=== PATIENT | female | born 1970 | race African-American/Black ===

== ENCOUNTER 2025-10-05 07:40 | Inpatient (IN) | payer OTHER ==
[~2025-10-05] VITALS: Ht 162.6 cm; Wt 62.6 kg
[2025-10-05 07:47] VITALS: O2SAT 100
[2025-10-05] MEDS: ADENOSINE 3 MG/ML 2ML VIAL IV ONE ×5 (07:55→08:04)
[2025-10-05 07:59] LABS: MEAN PLATELET VOLUME 7.0 fl (7.4-10.4); PLATELET 143 x1000/uL (130-400); RED BLOOD CELL COUNT 1.88 mill/uL (4.2-5.4); RED CELL DISTRIBUTION WIDTH 19.2 % (11.6-14.6)
[2025-10-05] MEDS: DILTIAZEM HCL 5MG/ML 5ML VIAL IV ONE (08:01)
[2025-10-05 08:05] LABS: HEMATOCRIT. 16.9 % (36.0-48.0); HEMOGLOBIN. 5.5 g/dL (12.0-16.0)
[2025-10-05 08:06] LABS: CREATININE 1.4 mg/dL (0.6-1.0)
[2025-10-05 08:07] LABS: UREA NITROGEN BLOOD 17.0 mg/dL (9-23)
[2025-10-05 08:26] LABS: BAND% 18.0 % (1.0-6.0); LYMPHOCYTES % MANUAL 14.0 % (20.0-60.0); MONOCYTES % MANUAL 10.0 % (2.0-8.0); NEUTROPHILS % MANUAL 58.0 % (45.0-75.0); PLATELET ESTIMATE NORMAL
[2025-10-05] MEDS: SODIUM CHLORIDE 0.9% 1,000 ML IV ONE (08:42)
[2025-10-05] MEDS ORDERED: VANCOMYCIN 1G PREMIX 200 ML IV ONE (13:45)
[2025-10-05] MEDS: PIPERACILLIN/TAZO 3.375G/50ML 50 ML IV ONE (13:57)
[2025-10-05] MEDS: SODIUM CHLORIDE 0.9% (SEPSIS BOLUS) IV ONE (13:57)
[2025-10-05] MEDS: METOPROLOL TARTRATE 50MG TABLET PO SCH (14:03)
[2025-10-05] MEDS: ACETAMINOPHEN 1000MG/100ML 100 ML IV ONE (14:06)
[2025-10-05 15:37] LABS: PROTEIN TOTAL 7.2 g/dL (6.0-8.3)
[2025-10-05 15:39] LABS: ASPARTATE AMINOTRANSFERASE 10 IU/L (<34); BILIRUBIN DIRECT 0.1 mg/dL (<=3.0); BILIRUBIN TOTAL 0.3 mg/dL (0.1-1.0)
[2025-10-05 15:52] VITALS: BP 137/82; PULSE 113; RESP 20; TEMP 37.252
[2025-10-05 16:40] VITALS: BP 137/82; PULSE 70; RESP 19; TEMP 37.3; O2SAT 100
[2025-10-05] MEDS ORDERED: ONDANSETRON HCL 4MG/2ML INJ IV PRN (16:45)
[2025-10-05] MEDS: DILTIAZEM HCL 30MG TABLET PO SCH (18:12)
[2025-10-05 19:29] LABS: CLARITY URINE CLOUDY (CLEAR); COLOR URINE YELLOW (YELLOW); GLUCOSE URINE NEGATIVE (NEGATIVE); KETONES URINE TRACE (NEGATIVE); LEUKOCYTE ESTERASE URINE 2+ (NEGATIVE); NITRITE URINE NEGATIVE (NEGATIVE); OCCULT BLOOD URINE 2+ (NEGATIVE); PH URINE 6.0 (4.5-8.0); PROTEIN URINE 2+ (NEGATIVE); SPECIFIC GRAVITY URINE 1.015 (1.005-1.030); UROBILINOGEN URINE 0.2 E.U./dL (0.2-1.0)
[2025-10-05 19:52] LABS: BACTERIA URINE 2+; SQUAMOUS EPITHELIAL CELL URINE 1+ /lpf (RARE/1+)
[2025-10-05 20:00] VITALS: BP 124/77; PULSE 109; RESP 18; TEMP 37.5; O2SAT 99
[2025-10-06] VITALS (9 sets, daily range): BP systolic 112–134; BP diastolic 59–74; PULSE 84–99; RESP 14–19; TEMP 36.28068–37.4; O2SAT 98–100
[2025-10-06] MEDS: KCL 20MEQ/100ML PREMIX 100 ML IV SCH (00:06)
[2025-10-06] MEDS ORDERED: DEXTROSE 50% WATER 50ML SYRINGE IV PRN (00:45)
[2025-10-06] MEDS: LOPERAMIDE 2MG/15ML UDC PO PRN (01:00)
[2025-10-06] MEDS: BLOOD SUGAR DIAGNOSTIC STRIP TEST SCH (07:02)
[2025-10-06] MEDS: INSULIN LISPRO 100 UNITS/ML SUBCUT SCH (07:03)
[2025-10-06 07:13] LABS: HEMOGLOBIN. 7.1 g/dL (12.0-16.0); MEAN PLATELET VOLUME 6.6 fl (7.4-10.4); PLATELET 94 x1000/uL (130-400); RED BLOOD CELL COUNT 2.47 mill/uL (4.2-5.4); RED CELL DISTRIBUTION WIDTH 19.4 % (11.6-14.6)
[2025-10-06 07:38] LABS: CREATININE 1.5 mg/dL (0.6-1.0); UREA NITROGEN BLOOD 20.0 mg/dL (9-23)
[2025-10-06 08:14] LABS: HEMATOCRIT. 21.0 % (36.0-48.0)
[2025-10-06] MEDS: LOPERAMIDE HCL 2MG CAPSULE PO PRN (10:28)
[2025-10-06] MEDS ORDERED: CEFTRIAXONE 1GM/50ML 50 ML IV SCH (16:00)
[2025-10-06] MEDS: PIPERACILLIN/TAZO 3.375G/50ML 50 ML IV SCH (18:24)
[2025-10-06 19:40] LABS: BAND% 36.0 % (1.0-6.0); LYMPHOCYTES % MANUAL 14.0 % (20.0-60.0); METAMYELOCYTES % 7.0 % (0-0); MONOCYTES % MANUAL 4.0 % (2.0-8.0); NEUTROPHILS % MANUAL 39.0 % (45.0-75.0); NUCLEATED RED BLOOD CELLS 1 /100 WBC; PLATELET ESTIMATE DECREASED
[2025-10-06 22:46] LABS: FOLIC ACID (FOLATE) SERUM 6.47 ng/mL (>5.38); VITAMIN B12 SERUM 1652 pg/mL (211-911)
[2025-10-07] VITALS: BP 133/75; PULSE 84; RESP 18; TEMP 36.4; O2SAT 99
[2025-10-07 04:00] VITALS: BP 134/76; PULSE 85; RESP 18; TEMP 36.7; O2SAT 99
[2025-10-07 07:51] LABS: HEMATOCRIT. 27.6 % (36.0-48.0); HEMOGLOBIN. 9.2 g/dL (12.0-16.0); MEAN PLATELET VOLUME 6.8 fl (7.4-10.4); PLATELET 100 x1000/uL (130-400); RED BLOOD CELL COUNT 3.18 mill/uL (4.2-5.4); RED CELL DISTRIBUTION WIDTH 18.5 % (11.6-14.6)
[2025-10-07 07:56] LABS: CREATININE 1.3 mg/dL (0.6-1.0); UREA NITROGEN BLOOD 16.0 mg/dL (9-23)
[2025-10-07 08:00] VITALS: BP 119/72; PULSE 82; RESP 18; TEMP 36.4; O2SAT 96
[2025-10-07 08:10] LABS: INR 1.1
[2025-10-07] MEDS: KCL 20MEQ/100ML PREMIX 100 ML IV NR (11:20)
[2025-10-07] MEDS: DIATR MEGLU/DIATRIZOATE SOLN 30ML PO SCH (11:21)
[2025-10-07 12:00] VITALS: BP 138/80; PULSE 80; RESP 18; TEMP 36.4; O2SAT 100
[2025-10-07] MEDS ORDERED: DIATR MEGLU/DIATRIZOATE SOLN 120ML ONE (13:15)
[2025-10-07 17:45] VITALS: BP 158/91; PULSE 88; RESP 18; TEMP 36.8; O2SAT 97
[2025-10-07] MEDS: DEXT 5%/0.45% NACL 1000ML 1,000 ML IV SCH (18:14)
[2025-10-07 20:00] VITALS: BP 139/76; PULSE 89; RESP 19; TEMP 36.7; O2SAT 97
[2025-10-08] VITALS: BP 140/79; PULSE 82; RESP 19; TEMP 36.1; O2SAT 98
[2025-10-08] MEDS: ACETAMINOPHEN 325MG TABLET PO PRN (00:37)
[2025-10-08 04:00] VITALS: BP 136/81; PULSE 91; RESP 19; TEMP 36.2; O2SAT 98
[2025-10-08 06:29] LABS: BASOPHILS % 0.7 % (0.0-2.0); EOSINOPHILS % 0.1 % (0.0-5.0); HEMATOCRIT. 27.8 % (36.0-48.0); HEMOGLOBIN. 9.4 g/dL (12.0-16.0); LYMPHOCYTES % 8.9 % (20.0-50.0); MEAN PLATELET VOLUME 6.9 fl (7.4-10.4); MONOCYTES % 3.9 % (2.0-8.0); NEUTROPHILS % 86.4 % (40.0-76.0); PLATELET 102 x1000/uL (130-400); RED BLOOD CELL COUNT 3.23 mill/uL (4.2-5.4); RED CELL DISTRIBUTION WIDTH 18.7 % (11.6-14.6)
[2025-10-08 06:54] LABS: CREATININE 1.3 mg/dL (0.6-1.0)
[2025-10-08 06:55] LABS: UREA NITROGEN BLOOD 13.0 mg/dL (9-23)
[2025-10-08 08:00] VITALS: BP 122/72; PULSE 79; RESP 18; TEMP 36.3; O2SAT 98
[2025-10-08] MEDS: KCL 20MEQ/100ML PREMIX 100 ML IV SCH (11:34)
[2025-10-08 12:00] VITALS: BP 137/81; PULSE 84; RESP 18; TEMP 36.6; O2SAT 100
[2025-10-08 16:00] VITALS: BP 142/81; PULSE 88; RESP 18; TEMP 36.7; O2SAT 99
[2025-10-08 17:24] LABS: LYMPHOCYTES % MANUAL 10.0 % (20.0-60.0); MONOCYTES % MANUAL 5.0 % (2.0-8.0); NEUTROPHILS % MANUAL 85.0 % (45.0-75.0); PLATELET ESTIMATE DECREASED
[2025-10-08 20:00] VITALS: BP 130/78; PULSE 90; RESP 18; TEMP 36.2; O2SAT 98
[2025-10-08] MEDS: MEROPENEM 1G/100ML 100 ML IV SCH (21:58)
[2025-10-09] VITALS: BP 144/86; PULSE 84; RESP 19; TEMP 36.2; O2SAT 98
[2025-10-09 04:00] VITALS: BP 145/84; PULSE 88; RESP 18; TEMP 36.9; O2SAT 98
[2025-10-09 06:38] LABS: CREATININE 1.3 mg/dL (0.6-1.0); UREA NITROGEN BLOOD 11.0 mg/dL (9-23)
[2025-10-09 07:09] LABS: BASOPHILS % 0.2 % (0.0-2.0); EOSINOPHILS % 0.0 % (0.0-5.0); HEMATOCRIT. 27.6 % (36.0-48.0); HEMOGLOBIN. 9.3 g/dL (12.0-16.0); LYMPHOCYTES % 10.0 % (20.0-50.0); MEAN PLATELET VOLUME 6.9 fl (7.4-10.4); MONOCYTES % 6.8 % (2.0-8.0); NEUTROPHILS % 83.0 % (40.0-76.0); PLATELET 113 x1000/uL (130-400); RED BLOOD CELL COUNT 3.19 mill/uL (4.2-5.4); RED CELL DISTRIBUTION WIDTH 18.3 % (11.6-14.6)
[2025-10-09 08:00] VITALS: BP 148/88; PULSE 90; RESP 19; TEMP 37; O2SAT 99
[2025-10-09 12:00] VITALS: BP 150/87; PULSE 90; RESP 19; TEMP 36.6; O2SAT 99
[2025-10-09 16:00] VITALS: BP 159/88; PULSE 78; RESP 18; TEMP 36.1; O2SAT 98
[2025-10-09] MEDS: MEROPENEM 1G/100ML 100 ML IV SCH (18:17)
[2025-10-09 20:00] VITALS: BP 166/84; PULSE 81; RESP 16; TEMP 36.4; O2SAT 99
[2025-10-10] VITALS (7 sets, daily range): BP systolic 140–172; BP diastolic 78–91; PULSE 75–86; RESP 18–19; TEMP 36.1–36.7; O2SAT 98–99
[2025-10-10 06:55] LABS: CREATININE 1.2 mg/dL (0.6-1.0); UREA NITROGEN BLOOD 9.0 mg/dL (9-23)
[2025-10-10 07:03] LABS: BASOPHILS % 0.3 % (0.0-2.0); EOSINOPHILS % 0.2 % (0.0-5.0); HEMATOCRIT. 28.8 % (36.0-48.0); HEMOGLOBIN. 9.6 g/dL (12.0-16.0); LYMPHOCYTES % 11.3 % (20.0-50.0); MEAN PLATELET VOLUME 7.0 fl (7.4-10.4); MONOCYTES % 10.2 % (2.0-8.0); NEUTROPHILS % 78.0 % (40.0-76.0); PLATELET 117 x1000/uL (130-400); RED BLOOD CELL COUNT 3.28 mill/uL (4.2-5.4); RED CELL DISTRIBUTION WIDTH 18.5 % (11.6-14.6)
[2025-10-10] MEDS ORDERED: LEVO750T68 MT ×2 (14:20→14:32)
[2025-10-11] MEDS ORDERED: PANTOPRAZOLE SODIUM 40 MG/VIAL IV SCH (09:00)
== END 2025-10-10 20:32 | disposition home or self-care (01) | DRG 720 ==
LOC: ER 07:40 → 8WST 08:24 → EDBEDREQ 08:26 → EDBEDREQTM 08:26 → 6EST 10-10 12:02
PROVIDERS: ADMIT Internal Medicine; ATTEND Internal Medicine
PROC: 30233N1 Transfusion of Nonautologous Red Blood Cells into Peripheral Vein, Percutaneous Approach (ICD-10-PCS; principal; 2025-10-05)
DX: A41.9 Sepsis, unspecified organism (principal); K63.1 Perforation of intestine (nontraumatic); N17.0 Acute kidney failure with tubular necrosis; C78.5 Secondary malignant neoplasm of large intestine and rectum; R18.8 Other ascites; G93.40 Encephalopathy, unspecified; I47.10 Supraventricular tachycardia, unspecified; D69.6 Thrombocytopenia, unspecified; D72.819 Decreased white blood cell count, unspecified; N17.9 Acute kidney failure, unspecified; N39.0 Urinary tract infection, site not specified; Z79.01 Long term (current) use of anticoagulants; D50.9 Iron deficiency anemia, unspecified; E11.9 Type 2 diabetes mellitus without complications; N13.9 Obstructive and reflux uropathy, unspecified; K63.9 Disease of intestine, unspecified; Z85.41 Personal history of malignant neoplasm of cervix uteri; Z79.899 Other long term (current) drug therapy
CPT/HCPCS: 36415; 71045; 74176; 78278; 80048; 80076; 81003; 82270; 82607; 82728; 82746; 82962; 83036; 83540; 83550; 83605; 84145; 85014; 85018; 85025; 85044; 86850; 86900; 86920; 87015; 87045; 87077; 87186; 87427; 87449; 87493; 93005; 93970; 96374; 96375; 99291; A4606; J0153; J0696; J1815; J2185; J2543; J3480; J3490; J7030; P9016; Q9963; J0131